=== PATIENT | female | born 1970 | race Caucasian/White ===

== ENCOUNTER 2018-01-23 08:16 | Emergency (ER) | payer OTHER ==
[2018-01-23 09:44] LABS: ADD UMIC YES; UR ASCORBIC ACID NEGATIVE (NEGATIVE); UR BACTERIA FEW /HPF (NONE SEEN); UR BILIRUBIN (Dip) NEGATIVE (NEGATIVE); UR BLOOD (Dip) 2+ mg/dL (NEGATIVE); UR CLARITY CLOUDY (CLEAR); UR COLOR YELLOW (YELLOW); UR GLUCOSE (Dip) 3+ mg/dL (NEGATIVE); UR KETONES (Dip) NEGATIVE (NEGATIVE); UR LEUKOCYTE ESTERASE (Dip) 3+ Leu/ul (NEGATIVE); UR NITRITE (Dip) NEGATIVE (NEGATIVE); UR RBC 29 /HPF (0-5); UR SPECIFIC GRAVITY (Dip) 1.033 (1.003-1.030); UR SQUAMOUS EPITHELIAL CELL FEW /HPF (FEW); UR TOTAL PROTEIN (Dip) 1+ mg/dl (NEGATIVE); UR UROBILINOGEN (Dip) NEGATIVE (NEGATIVE); UR WBC > 182 /HPF (0-5)
== END 2018-01-23 09:41 | disposition home or self-care (01) ==
LOC: FTE 08:16
DX: N30.01 Acute cystitis with hematuria (principal); E11.9 Type 2 diabetes mellitus without complications
CPT/HCPCS: 81001; 87086; 99283

== ENCOUNTER 2018-11-07 17:37 | Inpatient (IN) | payer BC, OTHER ==
[2018-11-07] MEDS: ASPIRIN 81 MG TAB PO (20:31)
[2018-11-07 20:40] LABS: WHITE BLOOD COUNT 7.4 10^3/ul (4.8-10.8)
[2018-11-07 20:40] LABS: ADD MAN DIFF? NO; BASOPHILS % 0.4 % (0.0-2.0); EOSINOPHILS # 0.3 10^3/ul (0.0-0.5); EOSINOPHILS % 3.9 % (0.0-7.0); HEMATOCRIT 41.7 % (37.0-47.0); HEMOGLOBIN 13.7 g/dl (12.0-16.0); LYMPHOCYTES # 3.1 10^3/ul (0.8-2.9); LYMPHOCYTES % 42.3 % (15.0-51.0); MEAN CORPUSCULAR HEMOGLOBIN 24.6 pg (29.0-33.0); MEAN CORPUSCULAR HGB CONC 32.9 g/dl (32.0-37.0); MEAN PLATELET VOLUME 10.6 fl (7.4-10.4); MONOCYTE # 0.7 10^3/ul (0.3-0.9); MONOCYTES % 9.1 % (0.0-11.0); NEUTROPHIL # 3.3 10^3/ul (1.6-7.5); NEUTROPHILS % 44.2 % (39.0-77.0); PLATELET COUNT 328 10^3/UL (140-415); RED BLOOD COUNT 5.56 10^6/ul (4.20-5.40); RED CELL DISTRIBUTION WIDTH 13.2 % (11.5-14.5)
[2018-11-07 20:50] LABS: ANION GAP 9 (5-13); BLOOD UREA NITROGEN 9 mg/dl (7-20); CALCIUM 9.6 mg/dl (8.4-10.2); CARBON DIOXIDE 34 mmol/L (21-31); CHLORIDE 91 mmol/L (97-110); CREATININE 0.47 mg/dl (0.44-1.00); Estimated GFR > 60 mL/min (>60); POTASSIUM 4.1 mmol/L (3.5-5.1); SODIUM 134 mmol/L (135-144)
[2018-11-07 21:02] LABS: TROPONIN-I < 0.012 ng/ml (0.000-0.120)
[2018-11-07 21:09] LABS: GLUCOSE 435 mg/dl (70-220)
[2018-11-07] MEDS ORDERED: ACETAMINOPHEN 325 MG TAB PO (21:30)
[2018-11-07] MEDS ORDERED: NACL 0.9% 3 ML SYG IV (21:30)
[2018-11-07] MEDS ORDERED: DOCUSATE SODIUM 100 MG CAP PO (21:30)
[2018-11-07] MEDS ORDERED: ZOLPIDEM 5 MG TAB PO (21:30)
[2018-11-07] MEDS ORDERED: MAGNESIUM HYDROXIDE 30ML CUP PO (21:30)
[2018-11-07] MEDS ORDERED: ONDANSETRON 4 MG INJ IV ×2 (21:30)
[2018-11-07] MEDS ORDERED: NITROGLYCERIN (SL) 0.4 MG TAB SL (21:30)
[2018-11-07] MEDS ORDERED: GLUCOSE GEL 15 GRAM TUBE PO ×2 (22:00)
[2018-11-07] MEDS ORDERED: GLUCOSE GEL 15 GRAM TUBE BUCCAL (22:00)
[2018-11-07] MEDS ORDERED: GLUCAGON 1 MG INJ IM (22:00)
[2018-11-07] MEDS ORDERED: DEXTROSE 50% 50 ML SYRINGE IV ×2 (22:00)
[2018-11-07 22:29] LABS: D-DIMER 685.89 ng/ml (<460)
[2018-11-07] MEDS: IOHEXOL 100 ML (23:11)
[2018-11-07] MEDS: SOD CHLORIDE 0.9% 100 ML (23:11)
[2018-11-08 05:38] LABS: ADD MAN DIFF? NO
[2018-11-08 05:40] LABS: BASOPHILS % 0.4 % (0.0-2.0); EOSINOPHILS # 0.3 10^3/ul (0.0-0.5); EOSINOPHILS % 3.5 % (0.0-7.0); HEMATOCRIT 37.6 % (37.0-47.0); HEMOGLOBIN 12.4 g/dl (12.0-16.0); LYMPHOCYTES % 40.4 % (15.0-51.0); MEAN CORPUSCULAR HEMOGLOBIN 24.4 pg (29.0-33.0); MEAN PLATELET VOLUME 10.5 fl (7.4-10.4); MONOCYTE # 0.7 10^3/ul (0.3-0.9); MONOCYTES % 8.8 % (0.0-11.0); NEUTROPHIL # 3.4 10^3/ul (1.6-7.5); NEUTROPHILS % 46.6 % (39.0-77.0); PLATELET COUNT 293 10^3/UL (140-415); RED BLOOD COUNT 5.08 10^6/ul (4.20-5.40); RED CELL DISTRIBUTION WIDTH 13.2 % (11.5-14.5)
[2018-11-08 05:40] LABS: WHITE BLOOD COUNT 7.4 10^3/ul (4.8-10.8)
[2018-11-08] MEDS: PANTOPRAZOLE (EC) 40 MG TAB PO (05:55)
[2018-11-08 06:24] LABS: ALANINE AMINOTRANSFERASE 24 IU/L (13-69); ALBUMIN 3.6 g/dl (3.3-4.9); ALKALINE PHOSPHATASE 102 IU/L (42-121); ANION GAP 14 (5-13); ASPARTATE AMINO TRANSFERASE 17 IU/L (15-46); BILIRUBIN,INDIRECT 0.1 mg/dl (0-1.1); BILIRUBIN,TOTAL 0.1 mg/dl (0.2-1.3); BLOOD UREA NITROGEN 11 mg/dl (7-20); CALCIUM 9.1 mg/dl (8.4-10.2); CARBON DIOXIDE 28 mmol/L (21-31); CHLORIDE 96 mmol/L (97-110); CREATININE 0.43 mg/dl (0.44-1.00); Estimated GFR > 60 mL/min (>60); GLUCOSE 357 mg/dl (70-220); POTASSIUM 4.4 mmol/L (3.5-5.1); SODIUM 138 mmol/L (135-144); TOTAL PROTEIN 7.2 g/dl (6.1-8.1)
[2018-11-08 07:21] LABS: HEMOGLOBIN A1C 11.5 % (0-5.9)
[2018-11-08] MEDS: ACETAMINOPHEN 325 MG TAB PO ×2 (07:57→15:54)
[2018-11-08] MEDS: INSULIN ASPART [NOVOLOG] 3 ML PEN SC ×4 (07:59→20:00)
[2018-11-08] MEDS: ASPIRIN (EC) 325 MG TAB PO (08:12)
[2018-11-08] MEDS: LISINOPRIL 5 MG TAB PO (08:12)
[2018-11-08] MEDS: ENOXAPARIN 40 MG/0.4 ML SYG SC (09:27)
[2018-11-08 19:41] LABS: TROPONIN-I < 0.012 ng/ml (0.000-0.120)
[2018-11-08] MEDS: INSULIN GLARGINE [LANTus] (100 UNITS/ML) SYG SC (20:04)
[2018-11-09] MEDS ORDERED: INSULIN ASPART [NOVOLOG] 3 ML PEN SC ×3 (01:00→08:00)
[2018-11-09 01:37] LABS: TROPONIN-I < 0.012 ng/ml (0.000-0.120)
[2018-11-09] MEDS ORDERED: ACCU-CHEK XX (02:00)
[2018-11-09] MEDS: ACCU-CHEK XX (02:00)
[2018-11-09] MEDS: PANTOPRAZOLE (EC) 40 MG TAB PO ×2 (06:00→09:31)
[2018-11-09 06:39] LABS: CHOLESTEROL 177 mg/dl (100-200)
[2018-11-09 06:39] LABS: CHOL/HDL RATIO 7.6 RATIO; HDL CHOLESTEROL 23 mg/dl (34-88); LDL CHOLESTEROL,CALCULATED 115 mg/dl; TRIGLYCERIDES 197 mg/dl (0-149)
[2018-11-09 07:33] LABS: TROPONIN-I < 0.012 ng/ml (0.000-0.120)
[2018-11-09] MEDS: INSULIN ASPART [NOVOLOG] 3 ML PEN SC ×3 (08:09→18:08)
[2018-11-09] MEDS: ASPIRIN (EC) 325 MG TAB PO (09:31)
[2018-11-09] MEDS: LISINOPRIL 5 MG TAB PO (09:32)
[2018-11-09] MEDS: ENOXAPARIN 40 MG/0.4 ML SYG SC (10:20)
[2018-11-09] MEDS: REGADENOSON 0.4 MG/5 ML SYG (11:59)
== END 2018-11-09 18:32 | disposition home or self-care (01) | DRG 313 ==
LOC: E/R 17:37 → 6WM 21:08
DX: R07.9 Chest pain, unspecified (principal); Z68.41 Body mass index [BMI] 40.0-44.9, adult; R06.02 Shortness of breath; E11.65 Type 2 diabetes mellitus with hyperglycemia; E66.9 Obesity, unspecified; R05 Cough
CPT/HCPCS: 36415; 71045; 71275; 78452; 80048; 80053; 80061; 81025; 82962; 83036; 84484; 85025; 85378; 93005; 93017; 93306; 93970; 99285-25; G0378